=== PATIENT | female | born 1970 ===

== ENCOUNTER 2023-01-20 05:17 | Day surgery (SDC) | payer OTHER ==
[~2023-01-20] VITALS: Ht 157.5 cm; Wt 61.2 kg
[2023-01-20] MEDS ORDERED: PERCOCET 5-3251 EACH PO (10:19)
[2023-01-20] MEDS ORDERED: NEURONTIN300 MG PO (10:19)
[2023-01-20] MEDS ORDERED: POLY119PG PO (10:20)
== END 2023-01-20 13:20 | disposition home or self-care (01) ==
LOC: CIR.AMB 05:17
PROVIDERS: ATTEND Surgery
DX: K43.2 Incisional hernia without obstruction or gangrene (principal); Z20.822 Contact with and (suspected) exposure to COVID-19